=== PATIENT | female | born 1935 | race Caucasian/White ===

== ENCOUNTER → 2018-01-15 | Outpatient (CLI) | payer OTHER ==
[~2018-01-15] MED LIST: AMLODIPINE BESY10 MG PO; ASA5UEC PO; ASPIRIN325; ATORVASTATIN CA40 MG PO; BYSTOLIC 5 MG5 M1; BYSTOLIC10 MG PO; COZAAR 25 MG TA25 M1; COZAAR100 MG PO; EFFIENT10 MG PO; HYDROCHLOROTHIA25 M2 PO; LEVOTHYROXIN0.112 M1 PO; PAXIL10 MG; PAXIL10 MG PO; PRESERVISION T1 EACH PO; PROTONIX40 M1 PO; VITAMIN B-12500 MC4 PO
--- NOTE | ~2018-01-15 | EXE ---
[facility] Vladimir Gerardo [employer] [place] [address] STRESS ECHOCARDIOGRAM Name: LANE COLIN Room #: JUANCHO MartinezAnaSymoneAna#: [id number] Admission: 01/15/18 Attend Phys: Arnold MAna ElliottIvonne, Discharge: Date of : 39 Date of Service: 01/15/18 1050 Report #: [id number] THIS REPORT FOR: //name// APPROVED REPORT Study performed: 01/15/2018 09:10:50 Exam: Stress Echocardiogram Indication: Hypertension, cardiomyopathy Patient Location: Echo lab Stress Nurse: Charu Deleon RN Status: routine Ht: 5 ft 8 in HR: 88 bpm BP: 176/97 mmHg Medical History Medical History: HTN, Cardiomyopathy, CAD s/p stent Medications: Amlodipine Allergies: Penicillin Cardiac Risk Factors: HTN, Tobacco History (Former) Pretest Chest Pain Characteristics: No chest pain Procedure The patient underwent an Exercise Stress Test using the Itz Protocol. Blood pressure, heart rate, and EKG were monitored. An Echocardiogram was performed by specimen technician in four stages in quad fashion. At peak stress, four selected images were obtained and placed side by side with resting images for comparison. Stress Test Details Stress Test: Exercise stress testing was performed using a Itz protocol. HR Resting HR: 88 bpm Max Heart Rate (APMHR): 139 bpm Max HR Achieved: 140 bpm Target HR (85% APMHR): 118 bpm % of APMHR: 100 Recovery HR: 85 bpm HR response to stress: Normal HR response to stress BP Resting BP: 176/97 mmHg Max BP: 190/95 mmHg Recovery BP: 168/[address] [facility] [address] [place] [address] STRESS ECHOCARDIOGRAM Name: L[address] COLIN Room #: JUANCHO SouzaAna#: [id number] Admission: 01/15/18 Attend Phys: Arnold Coronado, Discharge: Date of : 39 Date of Service: 01/15/18 1050 Report #: [id number] ECG Clinical Reason for Termination: Completed protocol, Maximal effort Stress Symptoms: Fatigue Exercise duration: 6 min sec Highest Stage Achieved: Stage 2: 2.5 mph at 12% grade. Exercise capacity: 7.20 METs Pre-Stress Echo The resting Echocardiogram showed normal left ventricular contractility with an estimated Ejection Fraction of about 45-50%. Post-Stress Echo The stress Echocardiogram showed normalnormal left ventricular contractility with an estimated Ejection Fraction of about 50-55%. Conclusion Clinical Response: Non-ischemic Exercise Capacity: Average Stress ECG Response: Non-ischemic Stress Echo Images: Non-ischemic Other Information Study Quality: Adequate <ELECTRONICALLY SIGNED> By: Arnold Coronado MD, FACC 01/15/18 1050 49 1050 Arnold Coronado MD, FACC /INF
== END ==
LOC: CV 05:58
DX: I10 Essential (primary) hypertension (principal); I42.9 Cardiomyopathy, unspecified; Z95.5 Presence of coronary angioplasty implant and graft; Z88.0 Allergy status to penicillin

== ENCOUNTER 2018-02-03 13:36 | Emergency (ER) | payer OTHER ==
[~2018-02-03] VITALS: Ht 172.7 cm; Wt 81.7 kg
--- NOTE | ~2018-02-03 | EKG ---
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 : 1935 Requested By: Demarco Harrell Order Number: [id number] MD: Chris Pozo Measurements Intervals [place] Rate: 74 P: 42 WV: 193 QRS: -7 QRSD: 128 T: 7 QT: 435 QTc: 483 Interpretive Statements Sinus rhythm Nonspecific intraventricular conduction delay Inferior infarct, old Compared to ECG 03/07/2016 16:51:01 No significant change was found Electronically Signed On 02-04-2018 15:29:31 CDT by Chris Pozo [email or web address] <ELECTRONICALLY SIGNED> By: Chris Pozo MD, [facility] 02/04/18 1529 16 16 Chris Pozo MD, [facility] /EPI
[2018-02-03] MEDS ORDERED: EDARBYCLOR 40-1 EACH PO (13:46)
[2018-02-03 14:05] LABS: ABSOLUTE NEUTROPHILS 4.3 thou/uL (1.4-8.2); EOSINOPHILS 2.3 % (0.0-3.0); HEMATOCRIT 41.6 % (37.0-47.0); HEMOGLOBIN 14.5 gm/dL (12.0-15.0); LYMPHOCYTES 33.1 % (24.0-44.0); MCHC 34.7 g/dL (28.0-37.0); MCV 89.1 fL (80.0-100.0); PLATELET COUNT 219 thou/uL (150-400); POLYS 54.6 % (36.0-66.0); RBC 4.67 mil/uL (4.20-5.00); RDW 12.9 % (10.5-14.5); WBC 7.8 thou/uL (4.0-11.0)
[2018-02-03 14:20] LABS: ANION GAP 9 mmol/L (7-16); BUN 19 mg/dL (7-18); CALCIUM 9.3 mg/dL (8.5-10.1); CHLORIDE 103 mmol/L (98-107); CO2 27 mmol/L (21-32); CREATININE 0.9 mg/dL (0.6-1.0); GLUCOSE 117 mg/dL (74-106); POTASSIUM 3.6 mmol/L (3.5-5.1); SODIUM 139 mmol/L (136-145)
[2018-02-03 14:28] LABS: ALBUMIN 3.9 g/dL (3.4-5.0); SGOT 22 U/L (15-37); SGPT 23 U/L (30-65); TOTAL BILIRUBIN 0.5 mg/dL (<0.1-1.0); TOTAL PROTEIN 7.5 g/dL (6.4-8.2); TROPONIN-I <0.06 ng/mL (<0.06)
[2018-02-03] MEDS ORDERED: IBU400 MG PO (15:06)
[2018-02-03] MEDS ORDERED: TRAMADOL 50 MG50 MG PO (15:06)
== END 2018-02-03 15:35 | disposition home or self-care (01) ==
LOC: ER 13:36
PROVIDERS: Emergency Medicine
DX: M19.011 Primary osteoarthritis, right shoulder (principal); I10 Essential (primary) hypertension; E11.9 Type 2 diabetes mellitus without complications; E78.5 Hyperlipidemia, unspecified; F32.9 Major depressive disorder, single episode, unspecified; Z87.891 Personal history of nicotine dependence; Z88.8 Allergy status to other drugs, medicaments and biological substances; Z88.0 Allergy status to penicillin; Z95.5 Presence of coronary angioplasty implant and graft; Z90.49 Acquired absence of other specified parts of digestive tract; Z85.3 Personal history of malignant neoplasm of breast

== ENCOUNTER 2018-09-14 13:17 | Emergency (ER) | payer OTHER ==
[~2018-09-14] VITALS: Ht 172.7 cm; Wt 82.6 kg
[~2018-09-14 13:17] MED LIST changes: +EDARBYCLOR 40-1 EACH PO; +IBU400 MG PO; +TRAMADOL 50 MG50 MG PO
[2018-09-14] MEDS ORDERED: PROTONIX 20 MG20 M1 PO (13:23)
[2018-09-14] MEDS ORDERED: SYNTHROID100 MC1 PO (13:23)
[2018-09-14] MEDS ORDERED: NORVASC5 MG PO (13:23)
--- NOTE | 2018-09-14 14:07 | EKG ---
[place] [address] [employer] 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 : 1935 Requested By: Demarco Harrell Order Number: [id number] MD: Albin Apple Measurements Intervals [place] Rate: 80 P: 31 [place]: 174 QRS: -23 QRSD: 129 T: 5 QT: 424 QTc: 490 Interpretive Statements Sinus rhythm Nonspecific intraventricular conduction delay Inferior infarct, old Consider v2v3 reversal Compared to ECG 02/03/2018 15:17:02 No significant changes Electronically Signed On 09-14-2018 14:07:27 CDT by Albin Apple [email or web address] ��������������������������������������������� <ELECTRONICALLY SIGNED> ���������������������������������������� By: Albin Apple MD ��������������������������������������������� 09/14/18 1407 1350 1350 Ablin Apple MD /ANSELMO
[2018-09-14 14:30] LABS: ABSOLUTE NEUTROPHILS 5.7 thou/uL (1.4-8.2); BASOPHILS 0.7 % (0.0-2.0); EOSINOPHILS 0.7 % (0.0-3.0); HEMATOCRIT 44.1 % (37.0-47.0); HEMOGLOBIN 15.5 gm/dL (12.0-15.0); LYMPHOCYTES 21.1 % (24.0-44.0); MCH 31.8 pg (26.0-34.0); MCHC 35.2 g/dL (28.0-37.0); MCV 90.4 fL (80.0-100.0); PLATELET COUNT 258 thou/uL (150-400); POLYS 70.5 % (36.0-66.0); RBC 4.88 mil/uL (4.20-5.00); RDW 13.1 % (10.5-14.5); WBC 8.1 thou/uL (4.0-11.0)
[2018-09-14 14:42] LABS: ANION GAP 10 mmol/L (7-16); BUN 17 mg/dL (7-18); CALCIUM 9.6 mg/dL (8.5-10.1); CHLORIDE 102 mmol/L (98-107); CO2 28 mmol/L (21-32); CREATININE 0.9 mg/dL (0.6-1.0); GLUCOSE 140 mg/dL (74-106); POTASSIUM 3.4 mmol/L (3.5-5.1); SODIUM 140 mmol/L (136-145)
[2018-09-14 14:51] LABS: ALBUMIN 4.2 g/dL (3.4-5.0); MAGNESIUM 1.9 mg/dL (1.8-2.4); SGOT 23 U/L (15-37); SGPT 31 U/L (30-65); TOTAL BILIRUBIN 0.5 mg/dL (<0.1-1.0); TOTAL PROTEIN 7.9 g/dL (6.4-8.2); TROPONIN-I <0.06 ng/mL (<0.06)
[2018-09-14] MEDS ORDERED: ATIVAN0.5 MG PO (15:10)
[2018-09-14] MEDS ORDERED: CLONIDINE0.1 PO (15:10)
[2018-09-14] MEDS ORDERED: PREDNISONE 5 MG5 M1 PO (15:25)
[2018-09-14] MEDS ORDERED: PRESERVISION T1 EACH PO (15:25)
[2018-09-14 15:30] VITALS: BP 134/81
== END 2018-09-14 15:33 | disposition home or self-care (01) ==
LOC: ER 13:17
PROVIDERS: Emergency Medicine
DX: I10 Essential (primary) hypertension (principal); F41.9 Anxiety disorder, unspecified; F32.9 Major depressive disorder, single episode, unspecified; E11.9 Type 2 diabetes mellitus without complications; E78.5 Hyperlipidemia, unspecified; Z95.5 Presence of coronary angioplasty implant and graft; Z85.3 Personal history of malignant neoplasm of breast; Z88.0 Allergy status to penicillin; Z88.8 Allergy status to other drugs, medicaments and biological substances; Z87.891 Personal history of nicotine dependence

== ENCOUNTER 2019-03-06 04:10 | Emergency (ER) | payer OTHER ==
[~2019-03-06] VITALS: Ht 172.7 cm; Wt 74.8 kg
--- NOTE | ~2019-03-06 | EMS ---
[facility] [address] [place] [address] EMS Patient Care Report Name: L[address] Room #: DEP MADAN Tom#: [id number] Admission: 03/06/19 ������������������ Attend Phys: Discharge: 03/06/19 ������������������ Date of : 39 Report #: [id number] THIS REPORT FOR: //name// Report Transmitted: 03/11/2019 09:09 EMS Care Summary [facility] MED-ACT Incident [id number] @ 03/06/2019 03:20 Incident Location [address] [place] [address] COLIN (PEG) Female, 84 Years 1935 Patient Address [address] [place] [address] Patient History Cardiac Arrest,Congestive Heart Failure (CHF),Hypertension,Hyperlipidemia,Cardiac - Stent, Patient Allergies Penicillin allergy, Patient Medications Other, Lasix, Pantoprazole, Synthroid, Aspirin, Bystolic, Potassium, Atorvastatin, Chief Complaint Difficulty Breathing Disposition Transported No Lights/[place] Reason Breathing Problem Transported To [facility] Narrative Patient reports that she went to bed around 21:00 last night "feeling fine" but was awakened from sleep around 02:00 feeling short of breath. The patient [facility] [address] [place] [address] EMS Patient Care Report Name: L[address] Room #: DEP Vaishali#: [id number] Admission: 03/06/19 ������������������ Attend Phys: Discharge: 03/06/19 ������������������ Date of : 39 Report #: [id number] reports she had a similar episode in December 2018 while visiting her son in [place]. Patient reports that she was in a new onset CHF and that EMS in [place] had to utilize CPAP during transport. The patient reports that she has not had another episode since then. The patient denied chest pain/pressure/discomfort and productive cough. The patient reports that she is compliant with taking all of her medications. The patient reports an improvement in her symptoms with a nebulized treatment of albuterol/atrovent. The patient requested ambulance transport to [facility] for further evaluation. Found this 84 y/o female patient sitting up on the edge of her bed in her room. The patient was a/o x 4. GCS 15. No tripod position noted. The patient was able to speak in complete sentences although her respirations were slightly labored. Patient's initial SaO2 was 85% on room air. Rales and expiratory wheezing could be heard bilaterally. No JVD or pedal edema noted. Patient was initially placed on oxygen via EtCO2 nasal cannula at 4 lpm. Patient's initial EtCO2 was 30mmHg and her SaO2 improved to 94%. The patient stood and stepped to the stretcher and was placed in a fowlers position on the cot. Seat belts were secured and the patient was taken to the MICU. Sinus rhythm with trigeminy on the monitor. No ST changes on the patient's 12 lead. A 20 ga IV saline lock was established in the patient's left hand. The patient's bG was 142mg/dL via finger stick. The patient was given a nebulized treatment of albuterol and atrovent. The patient's SaO2 improved to 98-99%. Upon arrival at [facility], the patient was taken to ER #10 and moved via draw sheet to the ER bed by [facility] and ER staff. Report and paperwork TOT nurse at patient's bedside. Initial Vitals @03:29P: 60,R: 14,Pain: 0/10,GCS: 15,EtCO2: 16,SpO2: 85,IA Suspected: false @03:33P: 60,R: 28,BP: 149/105,Pain: 0/10,GCS: 15,EtCO2: 26,SpO2: 94,Revised Trauma: 12, @03:54P: 76,R: 20,Pain: 0/10,GCS: 15,Glucose: 142,EtCO2: 27,SpO2: 99,IA Suspected: false @03:45P: 79,R: 23,BP: 73/60,Pain: 0/10,GCS: 15,EtCO2: 27,SpO2: 98,Revised Trauma: 10,IA Suspected: false @03:59P: 68,R: 19,BP: 112/72,Pain: 0/10,GCS: 15,EtCO2: 30,Revised Trauma: 12,IA Suspected: false Assessments @03:28MENTAL:Person Oriented,Time Oriented,Place Oriented,Event Oriented,SKIN:Pale,HEENT:Eyes: Left Pupil: 4-mm,Eyes: Right Pupil: 4-mm,Head/Face: No Abnormalities,Neck/Airway: No Abnormalities,LUNG SOUNDS:General: No Abnormalities,ABDOMEN:General: No Abnormalities,PELVIS//GI:EXTREMITIES:Capillary Refill: Left Upper: < 2 Sec,Left Arm: No Abnormalities,Right Arm: No Abnormalities,Left Leg: No [facility] [address] [place] [address] EMS Patient Care Report Name: L[address] Room #: DEP [facility]#: [id number] Admission: 03/06/19 ������������������ Attend Phys: Discharge: 03/06/19 ������������������ Date of : 39 Report #: [id number] Abnormalities,Right Leg: No Abnormalities,PULSE:Radial: 2+ Normal,NEURO:No Abnormalities, Impression Shortness of breath Procedures @03:4512-Lead ECGResponse: UnchangedSucceeded@03:50Saline Lock 10cc (20 ga) Site: Hand-LeftResponse: UnchangedSucceeded@03:46Albuterol - 2.5 Milligrams (mg) - NebulizedResponse: Improved@03:46Ipratropium - 0.5 Milligrams (mg) - NebulizedResponse: Improved Timeline 03:20,Call Received 03:20,Psap Call 03:20,Dispatched 03:22,En Route 03:26,On Scene 03:28,At Patient 03:29,BP: / M,PULSE: 60,RR: 14 R,SPO2: 85 Ox,ETCO2: 16 ,BG: ,PAIN: 0,GCS: 15, 03:33,BP: 149/105 M,PULSE: 60,RR: 28 R,SPO2: 94 Ox,ETCO2: 26 ,BG: ,PAIN: 0,GCS: 15, 03:45,12-Lead ECG,Response: UnchangedSucceeded, 03:45,BP: 73/60 M,PULSE: 79,RR: 23 R,SPO2: 98 Ox,ETCO2: 27 ,BG: ,PAIN: 0,GCS: 15, 03:46,Albuterol - 2.5 Milligrams (mg) - Nebulized,Response: Improved 03:46,Ipratropium - 0.5 Milligrams (mg) - Nebulized,Response: Improved 03:50,Saline Lock 10cc 20 ga Site: Hand-Left,Response: UnchangedSucceeded, 03:53,Depart Scene 03:54,BP: / M,PULSE: 76,RR: 20 R,SPO2: 99 Ox,ETCO2: 27 ,B,PAIN: 0,GCS: 15, 03:59,BP: 112/72 M,PULSE: 68,RR: 19 R,SPO2: Ox,ETCO2: 30 ,BG: ,PAIN: 0,GCS: 15, 04:04,At Destination 04:42,Call Closed Disclaimer v1.1 Copyright 2019 [employer] This EMS Care Summary contains data elements from the applicable legal record (which may be displayed differently). It is designed to provide pertinent information for the following purposes: continuity of care, clinical quality, and state data reporting. The complete legal record is available to ED staff and administrators of the receiving hospital in ES's Patient Tracker. All data is provided "as is."
[~2019-03-06 04:10] MED LIST changes: +ATIVAN0.5 MG PO; +CLONIDINE0.1 PO; +NORVASC5 MG PO; +PREDNISONE 5 MG5 M1 PO; +PROTONIX 20 MG20 M1 PO; +SYNTHROID100 MC1 PO
[2019-03-06 04:11] VITALS: BP 161/126
[2019-03-06] MEDS ORDERED: LASIX 40 MG TAB40 M2 PO (04:59)
[2019-03-06] MEDS ORDERED: K-DUR 20 MEQ T20 MEQ PO (04:59)
[2019-03-06] MEDS ORDERED: ASPIRIN325 PO (05:00)
[2019-03-06 05:01] LABS: ABSOLUTE NEUTROPHILS 4.8 thou/uL (1.4-8.2); BASOPHILS 1.1 % (0.0-2.0); EOSINOPHILS 2.5 % (0.0-3.0); HEMATOCRIT 44.9 % (37.0-47.0); HEMOGLOBIN 15.1 gm/dL (12.0-15.0); LYMPHOCYTES 33.1 % (24.0-44.0); MCHC 33.6 g/dL (28.0-37.0); MCV 92.3 fL (80.0-100.0); MONOCYTES 7.5 % (1.0-8.0); PLATELET COUNT 214 thou/uL (150-400); POLYS 55.8 % (36.0-66.0); RBC 4.86 mil/uL (4.20-5.00); RDW 13.6 % (10.5-14.5); WBC 9.3 thou/uL (4.0-11.0)
[2019-03-06 05:12] LABS: ANION GAP 10 mmol/L (7-16); BUN 17 mg/dL (7-18); CALCIUM 8.7 mg/dL (8.5-10.1); CHLORIDE 109 mmol/L (98-107); CO2 25 mmol/L (21-32); GLUCOSE 129 mg/dL (74-106); POTASSIUM 3.2 mmol/L (3.5-5.1); SODIUM 144 mmol/L (136-145)
[2019-03-06 05:14] LABS: PROTIME 10.7 Seconds (9.3-11.4)
[2019-03-06 05:22] LABS: ALBUMIN 3.4 g/dL (3.4-5.0); MAGNESIUM 1.7 mg/dL (1.8-2.4); SGOT 21 U/L (15-37); SGPT 14 U/L (30-65); TOTAL BILIRUBIN 0.5 mg/dL (<0.1-1.0); TOTAL PROTEIN 6.7 g/dL (6.4-8.2); TROPONIN-I <0.06 ng/mL (<0.06)
[2019-03-06 06:16] LABS: URINE BILIRUBIN NEGATIVE (Negative); URINE BLOOD NEGATIVE (Negative); URINE CLARITY CLEAR; URINE COLOR YELLOW; URINE GLUCOSE-RANDOM* NEGATIVE (Negative); URINE KETONES NEGATIVE (Negative); URINE LEUKOCYTES-REFLEX TRACE (Negative); URINE NITRITE-REFLEX NEGATIVE (Negative); URINE PROTEIN (DIPSTICK) NEGATIVE (Negative); URINE SPECIFIC GRAVITY <= 1.005 (1.005-1.035); URINE UROBILINOGEN 0.2 E.U./dl (0.2-1.0)
--- NOTE | 2019-03-06 08:21 | EKG ---
[place] [address] [employer] [facility] [employer] [place] [address] ELECTROCARDIOGRAM REPORT Name: L[address] Room #: 170-10 ADM IN M.R.#: [id number] ������������������ Admission: 03/06/19 ������������������ Attend Phys: Ron Marshall Discharge: ������������������ Date of : 39 Report #: [id number] ����������������������������������������������������������������� [id number] THIS REPORT FOR: //name// 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 : 1935 Requested By: Demarco Harrell Order Number: [id number] MD: Chris Pozo Measurements Intervals [place] Rate: 84 P: 64 [place]: 185 QRS: 12 QRSD: 132 T: -10 QT: 416 QTc: 492 Interpretive Statements Sinus rhythm Frequent premature ventricular complexes Nonspecific intraventricular conduction delay Inferior infarct, age indeterminate Compared to ECG 09/14/2018 13:50:48 Ventricular premature complex(es) now present Electronically Signed On 03-06-2019 8:21:12 CDT by Chris Pozo [email or web address] ��������������������������������������������� <ELECTRONICALLY SIGNED> ���������������������������������������� By: Chris Pozo MD, [facility] ��������������������������������������������� 03/06/19 0821 0418 0418 Chris Pozo MD, [facility] /EPI
--- NOTE | 2019-03-06 12:28 | 2DMMODE ---
[facility] [address] [place] [address] 2 D/M-MODE ECHOCARDIOGRAM Name: L[address] Room #: 170-10 ADM IN .R.#: [id number] ������������� Admission: 03/06/19 ������������� Attend Phys: Ron Bowen Discharge: ��� ������������� ��� Date of : 39 Date of Service: 03/06/19 1228 �� Report #: [id number] �������� ��������������������������������������������[id number] THIS REPORT FOR: //name// APPROVED REPORT Study performed: 03/06/2019 10:33:54 EXAM: Comprehensive 2D, Doppler, and color-flow Echocardiogram Patient Location: ER Room #: 10 Status: routine BSA: 1.88 HR: 76 bpm BP: 140/84 mmHg Rhythm: NSR Other Information Study Quality: Good Indications Congestive Heart Failure Dyspnea CAD Hypertension/HDD 2D Dimensions RVDd: 36.40 mm IVSd: 11.15 (7-11mm) LVOT Diam: 20.24 (18-24mm) LVDd: 63.96 mm PWd: 10.61 (7-11mm) Ascending Ao: 22.68 (22-36mm) LVDs: 57.25 (25-40mm) Aortic Root: 32.05 mm IVC: 16.00 mm Volumes Left Atrial Volume (Systole) Single Plane 4CH: 102.48 mL Single Plane 2CH: 131.19 mL LA ESV Index: 70.00 mL/m2 Aortic Valve AoV Peak Willem.: 1.64 m/s AO Peak Gr.: 10.81 mmHg LVOT Max P.50 mmHg LVOT Max V: 0.79 m/s KAMERON Vmax: 1.55 cm2 Mitral Valve [facility] [address] [place] [address] 2 D/M-MODE ECHOCARDIOGRAM Name: L[address] Room #: 170-10 ADM IN ..#: [id number] ������������� Admission: 03/06/19 ������������� Attend Phys: Ron Bowen Discharge: ��� ������������� ��� Date of : 39 Date of Service: 03/06/19 1228 �� Report #: [id number] �������� ��������������������������������������������[id number] E/A Ratio: 1.3 MV Decel. Time: 175.87 ms MV E Max Willem.: 0.87 m/s MV A Willem.: 0.69 m/s MV PHT: 51.00 ms IVRT: 129.18 ms Pulmonary Valve PV Peak Willem.: 0.81 m/s PV Peak Gr.: 2.64 mmHg Tricuspid Valve TR Peak Willem.: 2.48 m/s TR Peak Gr.: 24.57 mmHg PA Pressure: 30.00 mmHg Left Ventricle The left ventricle is normal size. Mild to moderate concentric left ventricular hypertrophy. Left ventricular systolic function is moderate to severely decreased. Akinesis of inferior wall and basal septum. LVEF is 30-35%. Moderate diastolic dysfunction is present (pseudonormal filling). Right Ventricle The right ventricle is normal size. The right ventricular systolic function is normal. Atria The left atrium size is dilated The right atrium size is normal. Aortic Valve The aortic valve is mildly calcified. No aortic regurgitation is present. There is no aortic valvular stenosis. Mitral Valve The mitral valve is normal in structure. Moderate to severe mitral regurgitation No evidence of mitral valve stenosis. Tricuspid Valve The tricuspid valve is normal in structure. There is mild tricuspid regurgitation. Estimated PAP 30 mmHg, Pulmonic Valve The pulmonary valve is normal in structure. There is no pulmonic valvular regurgitation. [facility] [place] [address] 2 D/M-MODE ECHOCARDIOGRAM Name: L[address] Room #: 170-10 ADM IN M.R.#: [id number] ������������� Admission: 03/06/19 ������������� Attend Phys: Ron Bowen Discharge: ��� ������������� ��� Date of : 39 Date of Service: 03/06/19 1228 �� Report #: [id number] �������� ��������������������������������������������[id number] Great Vessels The aortic root is normal in size. IVC is normal in size and collapses >50% with inspiration. Pericardium There is no pericardial effusion. <Conclusion> Left ventricular systolic function is moderate to severely decreased. Akinesis of inferior wall and basal septum. LVEF is 30-35%. Moderate diastolic dysfunction The left atrium size is dilated The aortic valve is mildly calcified. No aortic regurgitation or stenosis The mitral valve is normal in structure. Moderate to severe mitral regurgitation There is mild tricuspid regurgitation. Estimated pulmonary artery pressure of 30 mmHg, There is no pericardial effusion. ��������������������������������������������� <ELECTRONICALLY SIGNED> ���������������������������������������� By: Chris Pozo MD, [facility] ��������������������������������������������� 03/06/19 1228 1228 1228 Chris Pozo MD, [facility] /INF
[2019-03-06 13:52] VITALS: BP 142/89
[2019-03-06] MEDS ORDERED: DEMADEX20 MG PO (14:37)
[2019-03-06 15:21] VITALS: BP 158/92
== END 2019-03-06 16:50 | disposition home or self-care (01) ==
LOC: ER 04:10 → EROBS 05:46 → ER 05:46
PROVIDERS: Emergency Medicine
DX: I11.0 Hypertensive heart disease with heart failure (principal); I50.9 Heart failure, unspecified; J18.9 Pneumonia, unspecified organism; E87.6 Hypokalemia; E83.42 Hypomagnesemia; E78.5 Hyperlipidemia, unspecified; E11.9 Type 2 diabetes mellitus without complications; I25.2 Old myocardial infarction; F32.9 Major depressive disorder, single episode, unspecified; Z85.3 Personal history of malignant neoplasm of breast; Z90.49 Acquired absence of other specified parts of digestive tract; Z86.018 Personal history of other benign neoplasm; Z88.0 Allergy status to penicillin; Z88.8 Allergy status to other drugs, medicaments and biological substances; Z87.891 Personal history of nicotine dependence

== ENCOUNTER 2019-03-12 06:44 | Observation (INO) | payer OTHER ==
[~2019-03-12] VITALS: Ht 170.2 cm; Wt 73.0 kg
[~2019-03-12 06:44] MED LIST changes: +ASPIRIN325 PO; +DEMADEX20 MG PO; +K-DUR 20 MEQ T20 MEQ PO; +LASIX 40 MG TAB40 M2 PO
[2019-03-12 07:18] VITALS: BP 156/65
[2019-03-12] MEDS ORDERED: EDARBI40 MG PO (07:34)
[2019-03-12] MEDS ORDERED: DEMADEX 2020 MG/1 TA PO (07:36)
--- NOTE | 2019-03-12 14:16 | EKG ---
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 : 1935 Requested By: Arnold Coronado Order Number: [id number] MD: Dhiraj Ellis Measurements Intervals [place] Rate: 83 P: 60 [place]: 174 QRS: 3 QRSD: 133 T: 3 QT: 475 QTc: 559 Interpretive Statements Sinus rhythm Ventricular bigeminy Probable left atrial enlargement Left ventricular hypertrophy Electronically Signed On 03-12-2019 14:16:05 CDT by Dhiraj Ellis [email or web address] ��������������������������������������������� <ELECTRONICALLY SIGNED> ���������������������������������������� By: Dhiraj Ellis MD ��������������������������������������������� 03/12/19 1416 2 2 Dhiraj Ellis MD /ANSELMO
--- NOTE | 2019-03-12 15:30 | NUR ---
REPORT TO SHAE APODACA AT THIS TIME.
[2019-03-12 15:45] VITALS: BP 156/74
[2019-03-12 16:45] VITALS: BP 160/87
--- NOTE | 2019-03-12 17:04 | CATHLAB ---
[facility] Vladimir [place] [address] INVASIVE PROCEDURE REPORT Name: L[address] Room #: 214-P [facility].#: [id number] ������������� Admission: 03/12/19 ������������� Attend Phys: Arnold Coronado, Discharge: ��� ������������� ��� Date of : 39 �������������������� �� Report #: [id number] �������� ��������������������������������������������[id number] THIS REPORT FOR: //name// APPROVED REPORT Study performed: 03/12/2019 08:16:53 Patient Details Patient Status: Out-Patient Room #: The patient is a 84 year-old female Event Personnel Arnold Coronado Configuration Specialist, Ry Aquino RN RN, Jayla Lloyd, Chelsie Dennis RTR, STRANDING SUPERVISOR Scrub Procedures Performed Right and Left Heart Cath w/or w/o Coronarie [id number] [facility] [address] Place w/wo Plasty Single CIRC [id number] Indication Chest pain Procedure Narrative The Right Groin^ was infiltrated with 1% Lidocaine subcutaneous anesthesia. A PINNACLE 6FR Sheath #[id number] sheath was inserted into the right femoral artery. Coronary angiography was performed using coronary diagnostic catheters. The right coronary system was accessed and visualized with a JR4 catheter. The left coronary system was accessed and visualized with a JL4 catheter. The left ventricle was accessed and visualized with a PIGTAIL catheter. Left ventriculogram was performed in 30 degree projection. An aortogram of the abdominal aorta was performed. Closure device was deployed with a 6 Fr MYNXGRIP 6/7F #[id number]. There was no hematoma. Intraoperative Conscious Sedation Sedation start time: 8.24 Case end Time: 10.15 Fentanyl 100 mcg Versed 1 mg Fluoro Time: 12.45 minutes Dose: DAP 23736.30 cGycm2 1848 mGy Contrast Type and Amount: Visipaque 200 ml Hemodynamics The right atrial mean pressure is 9 mmHg. The pulmonary artery [facility] [address] [place] [address] INVASIVE PROCEDURE REPORT Name: LANE COLIN Room #: 214-P [facility]..#: [id number] ������������� Admission: 03/12/19 ������������� Attend Phys: Arnold MichelleAna ElliottIvonne, Discharge: ��� ������������� ��� Date of : 39 �������������������� �� Report #: [id number] �������� ��������������������������������������������[id number] pressure is 52/13 mmHg with a mean of 27 mmHg. The mean pulmonary capillary wedge pressure is 17 mmHg. The aortic pressure is 187/57 mmHg with a mean of 84 mmHg. The left ventricular pressure is 172/1 mmHg with a mean of mmHg. The left ventricular end diastolic pressure is 11 mmHg. The cardiac output using thermo method is 3.00 L/min. The cardiac index using thermo method is 1.63 L/min/m2. PCI Technique Lesion Percutaneous coronary intervention was performed on the proximal circumflex artery segment. A LAUNCHER 6FR EBU 3.5 #[id number] Guide Catheter was used to engage the ostium. A Luge Wire .014 x 182CM #[id number] Interventional Guidewire was used to cross the lesion. BALLOON DILATION A Balloon catheter Sprinter OTW 2.5 x 12 #[id number] was inserted and inflated up to 10.00atm for 27seconds. Additional Inflation: 16.00atm for 27seconds. STENT DEPLOYMENT A drug-eluting stent XIENCE MAGGIE RX 2.75 X 15 #[id number] was inserted and inflated up to 18.00atm for 34seconds. Additional Inflation: 24.00atm for 50seconds. POST STENT DEPLOYMENT BALLOON DILATION A Balloon catheter TREK NC OTW 2.75 X 12 #[id number] was inserted and inflated up to 24.00atm for 50seconds. Conclusion #1 successful PTCA stent of a proximal circumflex high-grade lesion proximal to previously placed stents which had mild in-stent restenosis. 2.75 x 15 Maggie postdilated 2.9 mm. 0% residual LILA grade 3 flow #2 left main mild disease giving rise to LAD and circumflex #3 LAD is mildly disease proximal calcification no occlusive disease this extends to the apex. #4 large dominant right coronary artery with mild plaquing extensive posterior lateral posterior descending distribution. 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 We'll follow aneurysm with noninvasive ultrasound. Recommendations and plan: Continue aggressive risk factor [facility] [address] [place] [address] INVASIVE PROCEDURE REPORT Name: LANE [address]IN Room #: 214-P REG Vaishali#: [id number] ������������� Admission: 03/12/19 ������������� Attend Phys: Arnold Coronado, Discharge: ��� ������������� ��� Date of : 39 �������������������� �� Report #: [id number] �������� ��������������������������������������������[id number] modification. Dual antiplatelet therapy to continue indefinitely. Transfer to [facility] in stable condition. ��������������������������������������������� <ELECTRONICALLY SIGNED> ���������������������������������������� By: Arnold Coronado MD, FACC ��������������������������������������������� 03/12/19 170 03 03 Arnold Coronado MD, FACC /INF
[2019-03-12 17:45] VITALS: BP 138/76
--- NOTE | 2019-03-12 18:56 | NUR ---
PATIENT ARRIVED FROM TELECOM NETWORK MANAGER, ALERT AND ORIENTED X4 AND ANXIUOS. VSS AND SR WITH PVC's ON THE MONITOR. ADMISION COMPLETED AND DR SALDIVAR NOTIFIES OF PATIENT ANXIETY, NEW ORDERS AND PATIENT MEDICATED. CONITNUE WITH NEW POC.
[2019-03-12 19:30] VITALS: BP 112/55
[2019-03-13 04:26] VITALS: BP 139/60
[2019-03-13 06:02] LABS: HEMATOCRIT 42.2 % (37.0-47.0); HEMOGLOBIN 14.3 gm/dL (12.0-15.0); MCH 30.7 pg (26.0-34.0); MCHC 33.8 g/dL (28.0-37.0); MCV 90.9 fL (80.0-100.0); RBC 4.65 mil/uL (4.20-5.00); RDW 13.7 % (10.5-14.5); WBC 9.7 thou/uL (4.0-11.0)
--- NOTE | 2019-03-13 06:40 | NUR ---
PATIENT CARES WERE ASSUMED AT SHIFT CHANGE. PATIENT WAS ASSESSED AND MEDS WERE PASSED. PATIENT DID NOT REQUEST ANY MORE XANAX. PATIENT DID APPER TO BE CLAM AND DOING WELL. HOURLY ROUNDING WAS DONE. THE BED IS IN A LOW AND LOCK POSITION
[2019-03-13 06:43] LABS: ALBUMIN 3.4 g/dL (3.4-5.0); CALCIUM 8.8 mg/dL (8.5-10.1); CREATININE 0.9 mg/dL (0.6-1.0); POTASSIUM 3.4 mmol/L (3.5-5.1); TOTAL BILIRUBIN 0.9 mg/dL (<0.1-1.0); TOTAL PROTEIN 6.6 g/dL (6.4-8.2); TROPONIN-I 0.41 ng/mL (<0.06)
[2019-03-13 07:35] VITALS: BP 140/51
[2019-03-13] MEDS ORDERED: CLOPIDOGREL75 MG PO (07:40)
[2019-03-13] MEDS ORDERED: ASPIRIN325 PO (07:40)
--- NOTE | 2019-03-13 08:13 | EKG ---
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 : 1935 Requested By: Arnold Coronado Order Number: [id number] MD: Dhiraj Ellis Measurements Intervals [place] Rate: 69 P: 77 DC: 185 QRS: 7 QRSD: 135 T: -1 QT: 469 QTc: 503 Interpretive Statements Sinus rhythm Multiple ventricular premature complexes Probable left atrial enlargement Left ventricular hypertrophy Inferior infarct, old Anterior Q waves, possibly due to LVH Prolonged QT interval Compared to ECG 03/12/2019 07:23:40 Myocardial infarct finding now present Q waves now present Prolonged QT interval now present Electronically Signed On 03-13-2019 8:13:39 CDT by Dhiraj Ellis [email or web address] ��������������������������������������������� <ELECTRONICALLY SIGNED> ���������������������������������������� By: Dhiraj Ellis MD ��������������������������������������������� 03/13/19812 8 8 Dhiraj Ellis MD /EPI
[2019-03-13 08:59] VITALS: BP 140/51
--- NOTE | 2019-03-13 09:19 | NUR ---
ASSUMED PT CARE AT APPROXIMATELY 0700. PT A&O X4. VITAL SIGNS STABLE. PT DENIES HAVING CHEST PAIN. PT DENIES HAVING SOB. ASSESSMENT CHARTED. FALL PRECAUTIONS IN PLACE. PT DISCHARGING HOME WITH FAMILY. PT RECEIVED DISCHARGE EDUCATION AND INFORMATION. PT STATED UNDERSTANDING OF DISCHARGE EDUCATION AND DENIED HAVING FURTHER QUESTIONS. IV DC. TELE DC. PT AWAITING FAMILY TO ARRIVE. R GROIN SITE C/D/I. NO HEMATOMA.
== END 2019-03-13 10:22 | disposition home or self-care (01) ==
LOC: CATH 06:44 → 2N 15:53 → CATH 15:54 → ENTRNSPT 03-13 10:14 → EDTRNSPTSTS 03-13 10:15 → 2N 03-13 10:22
PROVIDERS: ADMIT Internal Medicine Cardiovascular Disease
DX: I25.10 Atherosclerotic heart disease of native coronary artery without angina pectoris (principal); I34.0 Nonrheumatic mitral (valve) insufficiency; I11.0 Hypertensive heart disease with heart failure; I50.9 Heart failure, unspecified; E78.5 Hyperlipidemia, unspecified; I49.3 Ventricular premature depolarization; I71.4 Abdominal aortic aneurysm, without rupture; F41.9 Anxiety disorder, unspecified; M19.019 Primary osteoarthritis, unspecified shoulder; Z79.899 Other long term (current) drug therapy

== ENCOUNTER → 2019-12-04 | Outpatient (CLI) | payer OTHER ==
[~2019-12-04] MED LIST changes: +CLOPIDOGREL75 MG PO; +DEMADEX 2020 MG/1 TA PO; +EDARBI40 MG PO
== END ==
LOC: SJCVCIMAG 09:17
PROVIDERS: ATTEND Internal Medicine Cardiovascular Disease
DX: R94.31 Abnormal electrocardiogram [ECG] [EKG] (principal); I35.8 Other nonrheumatic aortic valve disorders; I27.20 Pulmonary hypertension, unspecified; I25.10 Atherosclerotic heart disease of native coronary artery without angina pectoris; E11.9 Type 2 diabetes mellitus without complications; I49.3 Ventricular premature depolarization; I42.9 Cardiomyopathy, unspecified; E78.00 Pure hypercholesterolemia, unspecified; I10 Essential (primary) hypertension; Z86.79 Personal history of other diseases of the circulatory system

== ENCOUNTER → 2020-06-03 | Outpatient (CLI) | payer OTHER | LOC: SJCVC 15:23 | PROVIDERS: ATTEND Internal Medicine Cardiovascular Disease | DX: R94.31 Abnormal electrocardiogram [ECG] [EKG] (principal); I25.10 Atherosclerotic heart disease of native coronary artery without angina pectoris; I49.3 Ventricular premature depolarization; I10 Essential (primary) hypertension; E78.00 Pure hypercholesterolemia, unspecified; I77.811 Abdominal aortic ectasia; I73.9 Peripheral vascular disease, unspecified; I42.9 Cardiomyopathy, unspecified; R68.89 Other general symptoms and signs; I25.2 Old myocardial infarction; Z79.82 Long term (current) use of aspirin; Z79.899 Other long term (current) drug therapy; Z87.891 Personal history of nicotine dependence ==

== ENCOUNTER → 2020-08-06 | Outpatient (CLI) | payer OTHER | LOC: SJCVCIMAG 06:38 | PROVIDERS: ATTEND Internal Medicine Cardiovascular Disease | DX: I08.1 Rheumatic disorders of both mitral and tricuspid valves (principal); I49.3 Ventricular premature depolarization; I73.9 Peripheral vascular disease, unspecified; M79.609 Pain in unspecified limb; I25.10 Atherosclerotic heart disease of native coronary artery without angina pectoris; E78.2 Mixed hyperlipidemia; E11.9 Type 2 diabetes mellitus without complications; I25.2 Old myocardial infarction; Z98.61 Coronary angioplasty status; Z95.828 Presence of other vascular implants and grafts; Z79.899 Other long term (current) drug therapy; Z87.891 Personal history of nicotine dependence ==